=== PATIENT | female | born 1950 | race Caucasian/White ===

== ENCOUNTER → 2016-07-23 | Outpatient (CLI) | payer OTHER, MEDICARE ==
[~2016-07-23] MED LIST: APIDRA; ASPEC81 PO; ASPI-435 PO; CALC500C70 PO; CHOL1CAP57 PO; CYAN100020 PO; CYAN500T PO; GLC500 PO; INSDGI SC; INSU100I2 SQ; LISI-461 PO; METF-384 PO; METH10TA6 PO; OMEP40CA PO; OMEP40CA41 PO; ROPI0.25 PO; SIMV40TA2 PO
[2016-07-23 13:04] LABS: THYROID STIMULATING HORMONE 2.18 uIu/ml (0.300-4.500)
== END | disposition home or self-care (01) ==
LOC: C.LABPBG 08:42
PROVIDERS: ATTEND Internal Medicine Endocrinology, Diabetes & Metabolism
DX: E10.9 Type 1 diabetes mellitus without complications (principal)

== ENCOUNTER → 2016-11-01 | Outpatient (CLI) | payer OTHER, MEDICARE ==
[2016-11-01 13:41] LABS: THYROID STIMULATING HORMONE 2.49 uIu/ml (0.300-4.500)
[2016-11-01 13:48] LABS: ESTIMATED AVERAGE GLUCOSE 157 mg/dl; HA1C FLAG Normal (Normal)
== END | disposition home or self-care (01) ==
LOC: C.LABPBG 07:27
PROVIDERS: ATTEND Physician Assistant
DX: E10.9 Type 1 diabetes mellitus without complications (principal)

== ENCOUNTER → 2016-11-09 | Outpatient (CLI) | payer OTHER, MEDICARE ==
--- NOTE | 2016-11-09 08:24 | DIAGNOSTIC IMAGING REPORT ---
ULTRASOUND RIGHT VENOUS DOPP LOWER EXT UNILAT CLINICAL HISTORY: I82.609 Acute thrombosis of upper [id number] right leg edema COMPARISON STUDY: None FINDINGS: Real-time and color flow Doppler imaging were performed. Flow was seen within the femoral, popliteal and calf veins with no intraluminal thrombus demonstrated. The saphenous vein is patent. Incidental note is made of patent superficial varicosities at the lateral aspect of the right knee. IMPRESSION: No evidence of right lower extremity DVT. Electronically signed by: Marco Agee M.D. 11/09/2016 8:23 AM Dictated Date/Time: 11/09/2016 8:19 AM
== END | disposition home or self-care (01) ==
LOC: C.ULTR 07:04
PROVIDERS: ATTEND Internal Medicine
DX: I82.609 Acute embolism and thrombosis of unspecified veins of unspecified upper extremity (principal); R60.0 Localized edema

== ENCOUNTER → 2016-12-20 | Outpatient (CLI) | payer OTHER, MEDICARE ==
--- NOTE | 2016-12-20 14:03 | MAMMOGRAPHY REPORT ---
BILATERAL DIGITAL SCREENING MAMMOGRAM WITH CAD: 12/20/2016 CLINICAL HISTORY: Routine screening. Patient has no complaints. TECHNIQUE: Bilateral CC and MLO views were obtained. Current study was also evaluated with a Compute r Aided Detection (CAD) system. COMPARISON: Comparison is made to exams dated: 12/16/2015 mammogram, 12/10/2014 mammogram, 12/05/2013 u ltrasound, 11/26/2013 mammogram, 06/07/2013 ultrasound, and 06/07/2013 ultrasound - [facility]. BREAST COMPOSITION: The tissue of both breasts is heterogeneously dense, which may obscure small mas ses. FINDINGS: The parenchymal pattern is similar to prior exams, with stable asymmetries in the inferior left breast. There is a benign coarse calcification in the left breast. No new suspicious mass, arc hitectural distortion or cluster of microcalcifications is seen. IMPRESSION: ACR BI-RADS CATEGORY 1: NEGATIVE There is no mammographic evidence of malignancy. A 1 year screening mammogram is recommended. The pa tient will receive written notification of the results. Approximately 10% of breast cancers are not detected with mammography. A negative mammographic report should not delay biopsy if a clinically suggestive mass is present. Brittny George M.D. ay/:12/20/2016 11:08:42 Beauty Operator: Vale PABLO)(Laura), [facility] letter sent: Normal 1/2 BI-RADS Code: ACR BI-RADS Category 1: Negative
== END | disposition home or self-care (01) ==
LOC: C.MAMM 08:00
PROVIDERS: ATTEND Internal Medicine
DX: Z12.31 Encounter for screening mammogram for malignant neoplasm of breast (principal)

== ENCOUNTER → 2016-12-27 | Outpatient (CLI) | payer OTHER, MEDICARE | END | disposition home or self-care (01) | LOC: C.MAMM 07:43 | PROVIDERS: ATTEND Internal Medicine | DX: M81.0 Age-related osteoporosis without current pathological fracture (principal); M85.89 Other specified disorders of bone density and structure, multiple sites ==

== ENCOUNTER → 2017-01-18 | Outpatient (CLI) | payer OTHER, MEDICARE ==
[2017-01-18 17:59] LABS: THYROID STIMULATING HORMONE 3.07 uIu/ml (0.300-4.500)
== END | disposition home or self-care (01) ==
LOC: C.LABPBG 13:06
PROVIDERS: ATTEND Physician Assistant
DX: E05.00 Thyrotoxicosis with diffuse goiter without thyrotoxic crisis or storm (principal)

== ENCOUNTER 2017-01-19 12:37 | Emergency (ER) | payer OTHER, MEDICARE ==
[~2017-01-19] VITALS: Ht 167.6 cm; Wt 82.4 kg
[~2017-01-19 12:37] MED LIST changes: -ASPI-435 PO; -CHOL1CAP57 PO; -CYAN100020 PO; -INSU100I2 SQ; -METF-384 PO; -OMEP40CA41 PO
[2017-01-19 12:40] VITALS: TEMP 36.7; Ht 167.6 cm; Wt 82.4 kg
[2017-01-19] MEDS ORDERED: SODIUM CHLORIDE 0.9% 1000ML 1,000 ML IV STA (13:13)
[2017-01-19] MEDS ORDERED: ONDANSETRON INJ 2 MG/ML 2 ML VIAL IV STA (13:13)
--- NOTE | 2017-01-19 13:23 | EMERGENCY ROOM VISIT NOTE ---
History Report prepared by Akash: Jason Casiano Under the Supervision of: Dr. Zeyad Horan M.D. First contact with patient: 13:08 Chief Complaint: GI ASSESSMENT Stated Complaint: PAIN IN LEFT SIDE - POSSIBLE FOOD POISOING History of Present Illness The patient is a 66 year old female with diabetes who presents to the Emergency Room with complaints of a persistent illness that started 3 days ago. She says that she ate at [employer] 3 days ago. The patient states that after eating there, she was sitting on the toilet for 2 hours with diarrhea. The patient adds that she had really bad sharp pain around her left flank and left abdomen. She says that she was nauseous and sweaty, but did not vomit. She notes that she proceeded to have diarrhea, with blood in her stool. The patient states the blood looked dark red in the toilet, but when she wiped, it was pink and mucousy. She adds that she had a fever at the time, but not currently. For the past 2 days, the patient says that she continued to still have a bit of diarrhea and bleeding. She has had a decreased appetite. The patient states that this morning, she thought she had to pass gas, but she then proceeded to have pink and red, bloody, mucousy discharge again. She called her primary care office, and was told to come here. She states that she still has been having the left-side pain with some radiation to her left back, but it has not been as bad as 3 days ago. The patient says that at its worst, the pain was a 10 out of 10 in severity, and currently, the pain is an 8 or 9 out of 10. She adds that she had a hernia repair on her left side, and is not sure if the pain is related. She has no history of diverticulitis. Source of History: patient Onset: 3 days ago Position: other (global - illness) Timing: other (persistent) Associated Symptoms: + diaphoresis, + nausea, + back pain (left), + hematochezia, + diarrhea Note: Associated symptoms: Left flank pain. Decreased appetite. Review of Systems See HPI for pertinent positives & negatives. A total of 10 systems reviewed and were otherwise negative. Past Medical & Surgical Medical Problems: (1) Diabetes (2) HTN (hypertension) Surgical Problems: (1) Hernia (2) History of hysterectomy Family History Diabetes mellitus Social History Smoking Status: Never Smoker Smokeless Tobacco Use: No Alcohol Use: none Marital Status: Housing Status: lives with family Occupation Status: retired Current/Historical Medications Scheduled Aspirin (Aspirin 81), 81 MG PO DAILY Calcium/Vitamin D (Os-Aston 500 Plus D), 1 TAB PO DAILY Cholecalciferol (Vitamin D3), 1,000 UNITS PO DAILY Cyanocobalamin (Vitamin B12), 1,000 MCG PO DAILY Insulin Glargine (Lantus), 10 UNITS SC QPM Insulin Lispro (Human) (Humalog Kwikpen), 8-10 UNITS SQ TIDM Lisinopril (Zestril), 10 MG PO QAM Metformin Hcl (Glucophage), 1,000 MG PO BID Methimazole (Methimazole), 10 MG PO QAM Omeprazole (Prilosec), 40 MG PO DAILY Ropinirole Hydrochloride (Requip), 0.25 MG PO BID Simvastatin (Zocor), 40 MG PO HS Allergies Coded Allergies: Tramadol (Unverified Allergy, Severe, SOB + Nausea & Vomiting, 01/19/17) Hydrocodone (Verified Adverse Reaction, Unknown, NAUSEA, 01/19/17) Morphine (Verified Adverse Reaction, Unknown, N&V, 01/19/17) Pregabalin (Verified Adverse Reaction, Unknown, NAUSEA, 01/19/17) Rofecoxib (Verified Adverse Reaction, Unknown, SEVERE NAUSEA, 01/19/17) Physical Exam Vital Signs Date Time Temp Pulse Resp B/P (MAP) Pulse Ox O2 Delivery O2 Flow Rate FiO2 01/19/17 18:30 68 20 121/72 97 01/19/17 16:43 71 18 125/77 95 Room Air 01/19/17 12:40 36.7 85 8 124/82 97 Room Air Physical Exam GENERAL: Patient is in no acute distress. HEENT: No acute trauma, normocephalic atraumatic, mucous membranes moist, no nasal congestion, no scleral icterus. NECK: No stridor, no adenopathy, no meningismus, trachea is midline. LUNGS: Clear to auscultation bilaterally, no wheeze, no rhonchi, breath sounds equal. HEART: Without murmurs gallops or rubs, regular rate and rhythm. ABDOMEN: Tender in left lower quadrant. Soft, bowel sounds positive, no hernias , no peritonitis. EXTREMITIES: No cyanosis or edema, full range of motion of all the joints without pain or difficulty, no signs for acute trauma. NEUROLOGIC: Oriented x 3, no acute motor or sensory deficits, no focal weakness. SKIN: No rash, no jaundice, no diaphoresis. Medical Decision & Procedures ER Provider Diagnostic Interpretation: CT results as stated below per my review and radiologist interpretation: ABD/PELVIS IV AND ORAL CONT CLINICAL HISTORY: 66 years-old Female presenting with left-sided pain, possible food poisoning, ABDOMINAL PAIN/GI--?DIVERTICULITIS--GIVE PO AND IV CONTRAST. TECHNIQUE: Multidetector CT of the abdomen and pelvis was performed after the administration of oral and intravenous contrast. IV contrast: 93 mL of Optiray 320. A dose lowering technique was used consistent with the principles of ALARA (as low as reasonably achievable). COMPARISON: None. CT DOSE (mGy.cm): The estimated cumulative dose is 940.27 mGycm. 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 Lung bases: Minimal dependent changes at the lung bases likely atelectasis. No pericardial or pleural effusion. Normal heart size. Liver: Hypodense 3 cm lesion in segment 2/3 with suggestion of peripheral nodular enhancement, indeterminate but possibly benign hemangioma. Perfusional variation noted along the fissure for the ligamentum teres. Additional irregular hypodense lesion noted in segment 6 measuring 2 cm, indeterminate. Normal liver morphology. Patent hepatic vasculature. Biliary: No intrahepatic or extrahepatic biliary ductal dilatation. Normal gallbladder. Pancreas: Mild parenchymal atrophy. Spleen: Top normal in size. Adrenal glands: Nonspecific nodular thickening of the adrenal glands bilaterally. Kidneys and ureters: No nephrolithiasis. Extrarenal pelvises laterally. No hydronephrosis. Few subcentimeter hypodensities likely cysts but too small to characterize. Ureters normal. Bladder: Mild apparent circumferential bladder wall thickening may be due to underdistention. Pelvic organs: Uterus surgically absent. No adnexal masses. Bowel: Normal appendix. Mild colonic wall thickening of the sigmoid colon and rectum. No significant diverticulosis evident. No bowel obstruction. Peritoneal cavity: No free fluid or intraperitoneal gas. Vasculature: Atherosclerosis of the normal caliber abdominal aorta. IVC patent. Lymph nodes: Few subcentimeter prominent bilateral external iliac lymph nodes, possibly reactive. Multiple prominent mesenteric lymph nodes also noted. No pathologically enlarged lymph nodes in abdomen and pelvis by CT size criteria. Abdominal wall: Postsurgical changes of the bilateral inguinal regions likely from hernia repair with extensive coil no and surgical clips. Musculoskeletal: Degenerative changes of the spine. IMPRESSION: 1. Wall thickening of the sigmoid colon and rectum, most consistent with infectious colitis. 2. Likely reactive mesenteric and bilateral external iliac lymph nodes. 3. Indeterminate liver lesions, possibly benign hemangiomas. If there is clinical concern, further evaluation with dedicated liver CT or MR could be obtained. 4. Postsurgical changes from prior bilateral inguinal hernia repairs. Electronically signed by: Devonte Hobson M.D. 01/19/2017 5:36 PM Dictated Date/Time: 01/19/2017 5:28 PM Laboratory Results 01/19/17 13:35 Red Blood Count 4.34, Mean Corpuscular Volume 94.2, Mean Corpuscular Hemoglobin 32.0, Mean Corpuscular Hemoglobin Concent 34.0, Mean Platelet Volume 10.5, Neutrophils (%) (Auto) 74.8, Lymphocytes (%) (Auto) 17.8, Monocytes (%) (Auto) 7.1, Eosinophils (%) (Auto) 0.0, Basophils (%) (Auto) 0.0, Neutrophils # (Auto) 7.75, Lymphocytes # (Auto) 1.85, Monocytes # (Auto) 0.74, Eosinophils # (Auto) 0.00, Basophils # (Auto) 0.00 01/19/17 13:35 Test 01/19/17 13:35 01/19/17 14:10 White Blood Count 10.37 K/uL (4.8-10.8) Red Blood Count 4.34 M/uL (4.2-5.4) Hemoglobin 13.9 g/dL (12.0-16.0) Hematocrit 40.9 % (37-47) Mean Corpuscular Volume 94.2 fL (80-100) Mean Corpuscular Hemoglobin 32.0 pg (25-34) Mean Corpuscular Hemoglobin Concent 34.0 g/dl (32-36) Platelet Count 228 K/uL (130-400) Mean Platelet Volume 10.5 fL (7.4-10.4) Neutrophils (%) (Auto) 74.8 % Lymphocytes (%) (Auto) 17.8 % Monocytes (%) (Auto) 7.1 % Eosinophils (%) (Auto) 0.0 % Basophils (%) (Auto) 0.0 % Neutrophils # (Auto) 7.75 K/uL (1.4-6.5) Lymphocytes # (Auto) 1.85 K/uL (1.2-3.4) Monocytes # (Auto) 0.74 K/uL (0.11-0.59) Eosinophils # (Auto) 0.00 K/uL (0-0.5) Basophils # (Auto) 0.00 K/uL (0-0.2) RDW Standard Deviation 45.5 fL (36.4-46.3) RDW Coefficient of Variation 13.1 % (11.5-14.5) Immature Granulocyte % (Auto) 0.3 % Immature Granulocyte # (Auto) 0.03 K/uL (0.00-0.02) Prothrombin Time 10.1 SECONDS (9.0-12.0) Prothromb Time International Ratio 0.9 (0.9-1.1) Activated Partial Thromboplast Time 28.6 SECONDS (21.0-31.0) Partial Thromboplastin Ratio 1.1 Anion Gap 6.0 mmol/L (3-11) Est Creatinine Clear Calc Drug Dose 84.3 ml/min Estimated GFR () 101.9 Estimated GFR (Non- 87.9 BUN/Creatinine Ratio 24.2 (10-20) Calcium Level 9.2 mg/dl (8.5-10.1) Total Bilirubin 0.6 mg/dl (0.2-1) Aspartate Amino Transf (AST/SGOT) 12 U/L (15-37) Alanine Aminotransferase (ALT/SGPT) 23 U/L (12-78) Alkaline Phosphatase 73 U/L (45-117) Total Protein 7.0 gm/dl (6.4-8.2) Albumin 3.8 gm/dl (3.4-5.0) Globulin 3.2 gm/dl (2.5-4.0) Albumin/Globulin Ratio 1.2 (0.9-2) Lipase 90 U/L (73-393) Urine Color YELLOW Urine Appearance CLEAR (CLEAR) Urine pH 7.0 (4.5-7.5) Urine Specific [place] 1.011 (1.000-1.030) Urine Protein NEG (NEG) Urine Glucose (UA) NEG (NEG) Urine Ketones NEG (NEG) Urine Occult Blood NEG (NEG) Urine Nitrite NEG (NEG) Urine Bilirubin NEG (NEG) Urine Urobilinogen NEG (NEG) Urine Leukocyte Esterase NEG (NEG) Laboratory results reviewed by me. Medications Administered Medications (Trade) Dose Ordered Sig/Khari Route Start Time Stop Time Status Last Admin Dose Admin Sodium Chloride 1,000 ml @ 999 mls/hr Q1H1M STAT IV 01/19/17 13:13 01/19/17 14:13 DC 01/19/17 14:17 999 MLS/HR ED Course 1311: The patient was evaluated in room B12A. A complete history and physical exam was performed. 1313: Ordered Zofran Inj 4 mg IV, NSS 1000 ml @ 999 mls/hr IV. 1525: I reevaluated and updated the patient. 1822: Reevaluated the patient and she is resting comfortably. Discussed results and discharge instructions: she verbalized understanding and agreement. The patient is ready for discharge. Medical Decision Differential diagnosis includes but is not limited to colitis or diverticulitis , dehydration, electrolyte imbalance, food poisoning, bacterial or viral intestinal infection. There is no leukocytosis or concerning anemia. No significant electrolyte abnormality, kidney failure or hepatitis. There is no coagulopathy. C. difficile testing is negative. Stool cultures are pending. Abdominal and pelvis CT does show colitis, no diverticulitis. No abscess seen. No pancreatitis by our laboratory testing. Urinalysis does not suggest infection. On exam, the patient was not febrile or toxic. There was no peritonitis. The patient was given IV Zofran for nausea, IV saline for hydration, she seems comfortable. The patient was reassured by her testing. She is being discharged on a bland diet, Tylenol for pain, rest was encouraged, hydration was encouraged. She will see her doctor this week and return to our ER for worsening pain, vomiting or fever. We can call with any positive stool culture results. Antibiotics are not indicated. Medication Reconcilliation Current Medication List: was personally reviewed by me Blood Pressure Screening Patient's blood pressure: Normal blood pressure Impression Primary Impression: Left sided abdominal pain Additional Impressions: Diarrhea Colitis Scribe Attestation The scribe's documentation has been prepared under my direction and personally reviewed by me in its entirety. I confirm that the note above accurately reflects all work, treatment, procedures, and medical decision making performed by me. Departure Information Dispostion Home / Self-Care Referrals Devonte Jaquez M.D. (PCP) Patient Instructions My [facility] Additional Instructions bland diet--crackers, soup, toast, gatorade tylenol for pain follow with joanna mabry this week return for fever, vomiting or worsening pain/symptoms we will call with any positive stool results that require treatmen Problem Qualifiers
[2017-01-19] MEDS ORDERED: OPTIRAY 320 IV PRN (13:30)
[2017-01-19 13:51] LABS: COMPLETE YES; HEMATOCRIT 40.9 % (37-47); IG% 0.3 %; LYMPH % 17.8 %; LYMPH ABS # 1.85 K/uL (1.2-3.4); MEAN CELL VOLUME 94.2 fL (80-100); MEAN PLATELET VOLUME 10.5 fL (7.4-10.4); MONO % 7.1 %; NEUT % 74.8 %; PLATELET COUNT 228 K/uL (130-400); RED BLOOD COUNT 4.34 M/uL (4.2-5.4); WHITE BLOOD COUNT 10.37 K/uL (4.8-10.8)
[2017-01-19] MEDS ORDERED: METF-384 PO (13:52)
[2017-01-19] MEDS ORDERED: INSDGI SC (13:52)
[2017-01-19] MEDS ORDERED: CYAN100020 PO (13:52)
[2017-01-19] MEDS ORDERED: ASPI-435 PO (13:52)
[2017-01-19] MEDS ORDERED: INSU100I2 SQ (13:52)
[2017-01-19] MEDS ORDERED: CHOL1CAP57 PO (13:52)
[2017-01-19] MEDS ORDERED: OMEP40CA41 PO (13:52)
[2017-01-19 13:59] LABS: INR 0.9 (0.9-1.1); PARTIAL THROMBOPLASTIN RATIO 1.1; PROTHROMBIN TIME (PATIENT) 10.1 SECONDS (9.0-12.0)
[2017-01-19 14:34] LABS: URINE APPEARANCE CLEAR (CLEAR); URINE BILIRUBIN NEG (NEG); URINE COLOR YELLOW; URINE NITRITE NEG (NEG); URINE SPECIFIC GRAVITY 1.011 (1.000-1.030); UROBILINOGEN NEG (NEG)
[2017-01-19 14:40] LABS: BUN/CREATININE RATIO 24.2 (10-20); CALCIUM 9.2 mg/dl (8.5-10.1); CREATININE 0.72 mg/dl (0.60-1.20); POTASSIUM 3.7 mmol/L (3.5-5.1)
[2017-01-19 14:43] LABS: MANUAL MICROSCOPIC REQUIRED? NO; REVIEW REQ? NO
[2017-01-19 14:43] LABS: ALB/GLOB RATIO 1.2 (0.9-2)
--- NOTE | 2017-01-19 17:38 | DIAGNOSTIC IMAGING REPORT ---
ABD/PELVIS IV AND ORAL CONT CLINICAL HISTORY: 66 years-old Female presenting with left-sided pain, possible food poisoning, ABDOMINAL PAIN/GI--?DIVERTICULITIS--GIVE PO AND IV CONTRAST. TECHNIQUE: Multidetector CT of the abdomen and pelvis was performed after the administration of oral and intravenous contrast. IV contrast: 93 mL of Optiray 320. A dose lowering technique was used consistent with the principles of ALARA (as low as reasonably achievable). COMPARISON: None. CT DOSE (mGy.cm): The estimated cumulative dose is 940.27 mGycm. 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 Lung bases: Minimal dependent changes at the lung bases likely atelectasis. No pericardial or pleural effusion. Normal heart size. Liver: Hypodense 3 cm lesion in segment 2/3 with suggestion of peripheral nodular enhancement, indeterminate but possibly benign hemangioma. Perfusional variation noted along the fissure for the ligamentum teres. Additional irregular hypodense lesion noted in segment 6 measuring 2 cm, indeterminate. Normal liver morphology. Patent hepatic vasculature. Biliary: No intrahepatic or extrahepatic biliary ductal dilatation. Normal gallbladder. Pancreas: Mild parenchymal atrophy. Spleen: Top normal in size. Adrenal glands: Nonspecific nodular thickening of the adrenal glands bilaterally. Kidneys and ureters: No nephrolithiasis. Extrarenal pelvises laterally. No hydronephrosis. Few subcentimeter hypodensities likely cysts but too small to characterize. Ureters normal. Bladder: Mild apparent circumferential bladder wall thickening may be due to underdistention. Pelvic organs: Uterus surgically absent. No adnexal masses. Bowel: Normal appendix. Mild colonic wall thickening of the sigmoid colon and rectum. No significant diverticulosis evident. No bowel obstruction. Peritoneal cavity: No free fluid or intraperitoneal gas. Vasculature: Atherosclerosis of the normal caliber abdominal aorta. IVC patent. Lymph nodes: Few subcentimeter prominent bilateral external iliac lymph nodes, possibly reactive. Multiple prominent mesenteric lymph nodes also noted. No pathologically enlarged lymph nodes in abdomen and pelvis by CT size criteria. Abdominal wall: Postsurgical changes of the bilateral inguinal regions likely from hernia repair with extensive coil no and surgical clips. Musculoskeletal: Degenerative changes of the spine. IMPRESSION: 1. Wall thickening of the sigmoid colon and rectum, most consistent with infectious colitis. 2. Likely reactive mesenteric and bilateral external iliac lymph nodes. 3. Indeterminate liver lesions, possibly benign hemangiomas. If there is clinical concern, further evaluation with dedicated liver CT or MR could be obtained. 4. Postsurgical changes from prior bilateral inguinal hernia repairs. Electronically signed by: Devonte Hobson M.D. 01/19/2017 5:36 PM Dictated Date/Time: 01/19/2017 5:28 PM
[2017-01-19 18:30] VITALS: BP 121/72; PULSE 68; O2SAT 97
== END 2017-01-19 18:30 | disposition home or self-care (01) ==
LOC: C.EDB 12:38
DX: R10.9 Unspecified abdominal pain (principal); K52.9 Noninfective gastroenteritis and colitis, unspecified; E11.9 Type 2 diabetes mellitus without complications; I10 Essential (primary) hypertension; Z83.3 Family history of diabetes mellitus; Z79.82 Long term (current) use of aspirin; Z79.4 Long term (current) use of insulin; Z79.899 Other long term (current) drug therapy

== ENCOUNTER → 2017-02-14 | Outpatient (CLI) | payer OTHER, MEDICARE ==
[~2017-02-14] MED LIST changes: -APIDRA; -ASPEC81 PO; +ASPI-435 PO; +CHOL1CAP57 PO; +CYAN100020 PO; -CYAN500T PO; -GLC500 PO; +INSU100I2 SQ; +METF-384 PO; -OMEP40CA PO; +OMEP40CA41 PO
[2017-02-14 12:39] LABS: THYROID STIMULATING HORMONE 1.93 uIu/ml (0.300-4.500)
== END | disposition home or self-care (01) ==
LOC: C.LABPBG 07:19
PROVIDERS: ATTEND Physician Assistant
DX: E05.00 Thyrotoxicosis with diffuse goiter without thyrotoxic crisis or storm (principal)

== ENCOUNTER → 2017-04-19 | Outpatient (CLI) | payer OTHER, MEDICARE ==
[2017-04-19 12:19] LABS: COMPLETE YES; IG% 0.2 %; LYMPH % 23.1 %; LYMPH ABS # 1.44 K/uL (1.2-3.4); MEAN CELL VOLUME 95.8 fL (80-100); MEAN CORPUSCULAR HEMOGLOBIN 31.8 pg (25-34); MEAN CORPUSCULAR HGB CONC 33.2 g/dl (32-36); MEAN PLATELET VOLUME 11.4 fL (7.4-10.4); MONO % 7.1 %; NEUT % 69.6 %; PLATELET COUNT 183 K/uL (130-400); RED BLOOD COUNT 4.28 M/uL (4.2-5.4); WHITE BLOOD COUNT 6.24 K/uL (4.8-10.8)
[2017-04-19 12:57] LABS: ALT/SGPT 27 U/L (12-78); BLOOD UREA NITROGEN 15 mg/dl (7-18); BUN/CREATININE RATIO 18.8 (10-20); CALCIUM 8.7 mg/dl (8.5-10.1); CARBON DIOXIDE 27 mmol/L (21-32); CHLORIDE 104 mmol/L (98-107); CHOLESTEROL 179 mg/dl (0-200); GLUCOSE 147 mg/dl (70-99); POTASSIUM 4.2 mmol/L (3.5-5.1); SODIUM 135 mmol/L (136-145)
[2017-04-19 13:05] LABS: ALB/GLOB RATIO 1.3 (0.9-2); ALKALINE PHOSPHATASE 61 U/L (45-117); AST/SGOT 14 U/L (15-37); HDL CHOLESTEROL 91 mg/dl; LDL CHOLESTEROL CALCULATED 77 mg/dl; TRIGLYCERIDES 53 mg/dl (0-150); VERY LOW DENSITY LIPOPROT CALC 11 mg/dl
[2017-04-19 13:34] LABS: ESTIMATED AVERAGE GLUCOSE 140 mg/dl; HA1C FLAG Normal (Normal)
--- NOTE | 2017-04-25 13:00 | CODING QUERY MEDICAL NECESSITY ---
SUPPORTING DIAGNOSIS NEEDED Dr. Jaquez, A supporting diagnosis is required for the test/procedure performed on this patient in order for us to be reimbursed by the patient's insurance. Please provide a supporting diagnosis for the following test/procedure listed below next to the test name along with your signature. *If there is no additional diagnosis for this patient that would support the following test/procedure please document that below next to the test/procedure. Test(s)/Procedure(s) that require a supporting diagnosis: * ([id number]) VITAMIN D ASSAY DIAGNOSIS: DATE OF SERVICE: 04/19/17 Provider Signature: Date: Thank you Burke Becerra [facility] Information Management Once completed, please kindly fax back to [phone] For questions please call [phone]
== END | disposition home or self-care (01) ==
LOC: C.LABPBG 07:10
PROVIDERS: ATTEND Internal Medicine
DX: Z11.59 Encounter for screening for other viral diseases (principal); E05.00 Thyrotoxicosis with diffuse goiter without thyrotoxic crisis or storm; E10.9 Type 1 diabetes mellitus without complications

== ENCOUNTER → 2017-05-24 | Outpatient (CLI) | payer OTHER, MEDICARE | END | disposition home or self-care (01) | LOC: C.LABPBG 07:13 | PROVIDERS: ATTEND Physician Assistant | DX: E05.00 Thyrotoxicosis with diffuse goiter without thyrotoxic crisis or storm (principal) ==

== ENCOUNTER → 2017-06-27 | Outpatient (CLI) | payer OTHER, MEDICARE | END | disposition home or self-care (01) | LOC: C.LABPBG 07:28 | PROVIDERS: ATTEND Physician Assistant | DX: E05.00 Thyrotoxicosis with diffuse goiter without thyrotoxic crisis or storm (principal) ==

== ENCOUNTER → 2017-08-08 | Outpatient (CLI) | payer OTHER, MEDICARE ==
[2017-08-08 13:45] LABS: HEMOGLOBIN A1C 6.6 % (4.5-5.6)
== END | disposition home or self-care (01) ==
LOC: C.LABPBG 07:23
PROVIDERS: ATTEND Physician Assistant
DX: E10.9 Type 1 diabetes mellitus without complications (principal); E05.00 Thyrotoxicosis with diffuse goiter without thyrotoxic crisis or storm

== ENCOUNTER → 2017-12-19 | Outpatient (CLI) | payer OTHER, MEDICARE ==
[2017-12-19 13:53] LABS: HEMATOCRIT 42.2 % (37-47); IG# 0.01 K/uL (0.00-0.02); LYMPH % 22.5 %; LYMPH ABS # 1.32 K/uL (1.2-3.4); MEAN CELL VOLUME 95.3 fL (80-100); MEAN CORPUSCULAR HEMOGLOBIN 31.6 pg (25-34); MEAN CORPUSCULAR HGB CONC 33.2 g/dl (32-36); MEAN PLATELET VOLUME 11.2 fL (7.4-10.4); MONO % 9.7 %; MONO ABS # 0.57 K/uL (0.11-0.59); NEUT % 67.6 %; NEUT ABS # 3.96 K/uL (1.4-6.5); PLATELET COUNT 194 K/uL (130-400); RED CELL DISTRIBUTION WIDTH CV 13.2 % (11.5-14.5); RED CELL DISTRIBUTION WIDTH SD 45.9 fL (36.4-46.3); WHITE BLOOD COUNT 5.86 K/uL (4.8-10.8)
[2017-12-19 14:17] LABS: HEMOGLOBIN A1C 6.6 % (4.5-5.6)
[2017-12-19 14:23] LABS: ALBUMIN 3.8 gm/dl (3.4-5.0); ALKALINE PHOSPHATASE 58 U/L (45-117); ALT/SGPT 28 U/L (12-78); AST/SGOT 18 U/L (15-37); BLOOD UREA NITROGEN 19 mg/dl (7-18); CALCIUM 8.9 mg/dl (8.5-10.1); CARBON DIOXIDE 28 mmol/L (21-32); CHOLESTEROL 166 mg/dl (0-200); CREATININE 0.86 mg/dl (0.60-1.20); GLUCOSE 209 mg/dl (70-99); LDL CHOLESTEROL CALCULATED 70 mg/dl; POTASSIUM 4.6 mmol/L (3.5-5.1); SODIUM 135 mmol/L (136-145); TOTAL PROTEIN 6.7 gm/dl (6.4-8.2)
== END | disposition home or self-care (01) ==
LOC: C.LABPBG 07:13
PROVIDERS: ATTEND Physician Assistant
DX: E10.9 Type 1 diabetes mellitus without complications (principal)

== ENCOUNTER → 2017-12-26 | Outpatient (CLI) | payer OTHER, MEDICARE ==
--- NOTE | 2017-12-26 15:10 | MAMMOGRAPHY REPORT ---
BILATERAL DIGITAL SCREENING MAMMOGRAM TOMOSYNTHESIS WITH CAD: 12/26/2017 CLINICAL HISTORY: Routine screening. Patient has no complaints. TECHNIQUE: The study was acquired using full field digital technology and interpreted from soft copy. Breast tomosynthesis in addition to standard 2D mammography was performed. Current study was also ev aluated with a Computer Aided Detection (CAD) system. COMPARISON: Comparison is made to exams dated: 12/20/2016 mammogram, 12/16/2015 mammogram, 12/10/2014 m ammogram, 06/07/2013 ultrasound, 06/07/2013 ultrasound, and 06/07/2013 mammogram - [facility]. BREAST COMPOSITION: The tissue of both breasts is heterogeneously dense, which may obscure small mass es. FINDINGS: A linear scar marker overlies the lower outer left breast. There are a few benign coarse c alcifications in the breasts. No suspicious mass, architectural distortion or cluster of microcalcifi cations is seen. IMPRESSION: ACR BI-RADS CATEGORY 1: NEGATIVE There is no mammographic evidence of malignancy. A 1 year screening mammogram is recommended.( 019) The patient will receive written notification of the results. Some breast cancers are not detected with mammography. A negative mammographic report should not surjit y biopsy if a clinically suggestive mass is present. Brittny George M.D. ay/:12/26/2017 08:56:07 Clarifier Operator Helper: Valeria Pennington, [facility] letter sent: Normal 1/2 BI-RADS Code: ACR BI-RADS Category 1: Negative
== END | disposition home or self-care (01) ==
LOC: C.MAMM 07:08
PROVIDERS: ATTEND Internal Medicine
DX: Z12.31 Encounter for screening mammogram for malignant neoplasm of breast (principal)